=== PATIENT | male | born 1965 | race Hispanic/Latino ===

== ENCOUNTER 2019-06-25 01:26 | Inpatient (IN) | payer SELFPAY ==
[~2019-06-25] VITALS: Ht 177.8 cm; Wt 99.8 kg
[2019-06-25] MEDS ORDERED: ALBUTEROL/IPRATROPIUM 3 ML NEB NEB ONE (01:45)
[2019-06-25 02:18] LABS: BASOPHILS # (AUTO) 0.1 (0.0-0.1); BASOPHILS % 0.8 % (0.0-1.0); EOSINOPHILS # (AUTO) 0.2 (0.0-0.4); EOSINOPHILS % 3.6 % (0.0-6.0); HEMATOCRIT 38.3 % (38.2-49.6); HEMOGLOBIN 12.9 g/dL (14.0-18.0); LYMPHOCYTES # (AUTO) 2.3 (1.0-3.2); LYMPHOCYTES % 35.5 % (18.0-39.1); MEAN CORPUSCULAR HEMOGLOBIN 31.5 pg (28-32); MEAN CORPUSCULAR HGB CONC 33.7 g/dL (31-35); MEAN CORPUSCULAR VOLUME 93.4 fL (81-99); MONOCYTES # (AUTO) 0.6 (0.2-0.8); MONOCYTES % 8.8 % (4.4-11.3); NEUTROPHILS # (AUTO) 3.3 (2.1-6.9); PLATELET COUNT 236 x10e3/uL (140-360); RED CELL DISTRIBUTION WIDTH 13.3 % (11.7-14.4)
[2019-06-25 02:27] LABS: INR 0.88; PARTIAL THROMBOPLASTIN TIME 30.7 seconds (23.8-35.5); PROTHROMBIN TIME 12.4 seconds (11.9-14.5)
[2019-06-25] MEDS ORDERED: FUROSEMIDE INJ 10 MG/ML 4 ML VIAL IV ONE (02:30)
[2019-06-25 02:33] LABS: ALANINE AMINOTRANSFERASE 152 IU/L (0-55); ALBUMIN 3.9 g/dL (3.5-5.0); ALBUMIN/GLOBULIN RATIO 1.1 (0.8-2.0); ALKALINE PHOSPHATASE 83 IU/L (40-150); ANION GAP 17.7 mmol/L (8-16); BLOOD UREA NITROGEN 22 mg/dL (7-26); BUN/CREATININE RATIO 18 (6-25); CARBON DIOXIDE 18 mmol/L (22-29); CHLORIDE 102 mmol/L (98-107); CREATININE, SERUM 1.19 mg/dL (0.72-1.25); EST GLOMERULAR FILTRATION RATE > 60 ML/MIN (60-); GLUCOSE 80 mg/dL (74-118); POTASSIUM 3.7 mmol/L (3.5-5.1); SODIUM 134 mmol/L (136-145)
[2019-06-25 02:43] LABS: CREATINE KINASE MB < 1.00 ng/mL (0-4.3)
[2019-06-25] MEDS ORDERED: NITROGLYCERIN 2% OINT 1 GM PKT TOP ONE (03:15)
[2019-06-25] MEDS ORDERED: ENOXAPARIN SODIUM INJ 100 MG/ML SYR SC STA (03:17)
[2019-06-25] MEDS ORDERED: ASPIRIN 81 MG CHEW TAB PO ONE (03:30)
--- NOTE | 2019-06-25 03:55 | Diagnostic Imaging Report ---
EXAMINATION: CHEST SINGLE (PORTABLE) INDICATION: Short of breath COMPARISON: None FINDINGS: AP view TUBES and LINES: None. LUNGS: Lungs are well inflated. Increased pulmonary interstitial markings.. Central pulmonary vascular congestion. Peribronchial cuffing. PLEURA: Trace fluid in the right horizontal fissure. No pneumothorax. HEART AND MEDIASTINUM: Cardiac size is mildly enlarged. BONES AND SOFT TISSUES: No acute osseous lesion. Soft tissues are unremarkable. UPPER ABDOMEN: No free air under the diaphragm. IMPRESSION: Cardiomegaly with pulmonary interstitial edema. Signed by: Ernesto Perkins DO on 06/25/2019 3:52 AM
[2019-06-25 05:32] LABS: CREATINE KINASE 444 IU/L (30-200)
--- NOTE | 2019-06-25 06:09 | Diagnostic Imaging Report ---
EXAM: CT Chest WITH contrast (PE protocol) 06/25/2019 3:17 AM INDICATION: Short of breath COMPARISON: None TECHNIQUE: Chest was scanned utilizing a multidetector helical scanner from the lung apex through the level of the adrenal glands without administration of IV contrast. Coronal and sagittal reformations were obtained. Chest was scanned with pulmonary arterial phase and thin slices were made. IV CONTRAST: 100 mL of Isovue 370 COMPLICATIONS: None RADIATION DOSE: Total DLP: mGy*cm Estimated effective dose: (DLP x 0.014 x size factor) mSv CTDIvol has been reviewed. It is below the limits set by the Radiation Protocol Committee (RPC). Dose modulation, iterative reconstruction, and/or weight based adjustment of the mA/kV was utilized to reduce the radiation dose to as low as reasonably achievable. FINDINGS: LINES/ TUBES: None. LUNGS AND AIRWAYS: No filling defects in the pulmonary arteries. Interlobular septal thickening throughout the lungs. Scattered subtle groundglass opacities. Airways are normal. PLEURA: Trace bilateral pleural effusions. HEART AND MEDIASTINUM: The thyroid gland is normal. No mediastinal, hilar or axillary lymphadenopathy. The heart is mild enlarged. Trace fluid in the pulmonary fissures. The pulmonary artery is nondilated measures 2.7 cm in diameter. UPPER ABDOMEN: Unremarkable. BONES: The visualized bony thorax is within normal limits. SOFT TISSUES: Unremarkable. IMPRESSION: No pulmonary embolism. Mild cardiomegaly with pulmonary edema and trace left pleural effusion. Triple vessel coronary artery disease. Signed by: Ernesto Perkins DO on 06/25/2019 6:05 AM
[2019-06-25 06:26] LABS: BILIRUBIN,URINE NEGATIVE (NEGATIVE); CLARITY,URINE CLEAR (CLEAR); COLOR,URINE YELLOW (YELLOW); KETONES,URINE NEGATIVE (NEGATIVE); LEUKOCYTE ESTERASE ,URINE NEGATIVE (NEGATIVE); NITRITE,URINE NEGATIVE (NEGATIVE); PROTEIN,URINE DIPSTICK NEGATIVE (NEGATIVE); URINE UROBILINOGEN 0.2 mg/dL (0.2 - 1)
[2019-06-25] MEDS ORDERED: SODIUM CHLORIDE 0.9% 50ML 50 ML ONE (06:26)
[2019-06-25] MEDS ORDERED: IOPAMIDOL 370 MG/ML 200 ML INFUS..BTL INJ ONE (06:26)
--- NOTE | 2019-06-25 06:27 | History and Physical ---
REASON FOR ADMISSION: 1. Hypertensive urgency. 2. Pulmonary edema. 3. CHF. 4. Elevated liver function tests. HISTORY OF PRESENT ILLNESS: The patient is a noncompliant gentleman, who has a history of hypertension, who also drank 12 beers on the day of admission. We started noticing severe shortness of breath and he came to the emergency room with hypertensive urgency and significant pulmonary edema as well as elevated liver function tests. Currently he is on BiPAP with improved oxygenation as well as post diuretics and is feeling better. His CT scan of the chest showed no evidence of pulmonary embolus. PAST MEDICAL HISTORY: Hypertension. MEDICATIONS: See CLIF. ALLERGIES: SEE JAN. SOCIAL HISTORY: Positive drinker. Nonsmoker. FAMILY HISTORY: Hypertension. PHYSICAL EXAMINATION: VITAL SIGNS: Temperature is 98.6, blood pressure 166/100, pulse 74, and sats 98% on BiPAP. GENERAL: He appears to be comfortable on the BiPAP. NECK: Supple. No JVD. No lymphadenopathy. CARDIOVASCULAR: Regular rate and rhythm. LUNGS: Bilateral rales, mostly in the lower 1/3 of the lungs. ABDOMEN: Good bowel sounds. Soft and nontender. EXTREMITIES: No clubbing or cyanosis. NEUROLOGIC: Nonfocal. ASSESSMENT AND PLAN: 1. Congestive heart failure. We will do an echo to see if he has diastolic or systolic heart failure. Continue with diuretic therapy and BiPAP. 2. Hypertensive urgency. We will start him on medications and monitor the blood pressure closely. 3. Elevated liver function tests. We will also monitor since most likely secondary to alcohol use. Please see hospital chart for full details. MD KALEB Short/EVY /[id number]
[2019-06-25 06:31] LABS: AMPHETAMINES SCREEN,URINE NEGATIVE (NEGATIVE); BENZODIAZEPINES SCREEN,URINE NEGATIVE (NEGATIVE); PHENCYCLIDINE SCREEN,URINE NEGATIVE (NEGATIVE)
--- NOTE | 2019-06-25 07:06 | NUR ---
2600CC OUTPUT TOTAL AND CURRENT BP OF 160/105-DR SHAFFER AWARE. NO NEW ORDERS, REPORT GIVEN IN FULL TO MATTIE BACK
[2019-06-25] MEDS: FUROSEMIDE INJ 10 MG/ML 4 ML VIAL IV SCH ×2 (08:57→17:06)
[2019-06-25] MEDS ORDERED: LISINOPRIL 10 MG TAB PO SCH (09:00)
--- NOTE | 2019-06-25 09:00 | NUR ---
PATIENT ALERT AND ORIENTED; PATIENT REQUESTING TO BE TAKEN OFF BIPAP TO EAT BREAKFAST. PATIENT TOLERATED WELL, O2 SATS REMAIN 96-100% ON ROOM AIR; DR SHAFFER STATED OK TO LEAVE OFF BIPAP LONG O2 SATS REMAIN GREATER THAN 94%
--- NOTE | 2019-06-25 10:30 | NUR ---
PATIENT AND SPOUSE UPDATED ON PLAN OF CARE; AWAITING BED ASSIGNMENT. PATIENT REMAINS OFF BIPAP, WITH O2 SATS >97% ON ROOM AIR
[2019-06-25 11:00] LABS: CREATINE KINASE MB 2.7 ng/mL (0-5.0)
--- NOTE | 2019-06-25 14:45 | NUR ---
PATIENT RESTING QUIETLY AT THIS TIME; STILL AWAITING INPATIENT BED.
--- NOTE | 2019-06-25 16:07 | NUR ---
PATIENT'S SPOUSE STATING THAT PATIENT IS READY TO LEAVE, THAT THEY HAVE BEEN WAITING ALL DAY FOR THE RESULTS OF HIS TEST. AGAIN EXPLAINED TO PATIENT AND SPOUSE THAT PATIENT WAS ADMITTED FOR CHF, AND THAT THE PHYSICIAN NEEDED TO COME AND CLEAR THEM FIRST. PATIENT AND FAMILY WAITING TO SPEAK WITH CHARGE NURSE
--- NOTE | 2019-06-25 16:17 | NUR ---
PATIENT REQUESTING TO LEAVE AGAINST MEDICAL ADVICE. EDUCATED PATIENT AND FAMILY ON THE RISKS OF LEAVING AGAINST MEDICAL ADVICE AND BENEFITS OF STAYING TO RECEIVE CARE, INFORMED PATIENT THAT DR LOYD MUST CONSULT WITH PATIENT BEFORE AMA CAN BE SIGNED PER POLICY,VERBALIZED UNDERSTANDING.
--- NOTE | 2019-06-25 16:24 | NUR ---
NOTIFIED PATIENTN AND DR DON IBRAHIM REGARDING AMA,AWAITING CALL,VERBALIZED UNDERSTANDING. Addendum: 06/25/19 at 1628 by AMCCAULE NOTIFIED PATIENT AND FAMILY DR EVERT IBRAHIM REGARDING AMA,AWAITING CALL,VERBALIZED UNDERSTANDING.
--- NOTE | 2019-06-25 16:37 | NUR ---
DR LOYD SPOKE WITH PATIENT VIA TELEPHONE, EDUCATED PATIENT ON THE RISKS OF LEAVING AGAINST MEDICAL ADVICE,VERBALIZED UNDERSTANDING.
--- NOTE | 2019-06-25 16:42 | NUR ---
PATIENT STATES THAT HE WILL STAY TO RECEIVE CARE AND DOES NOT WISH TO LEAVE AGAINST MEDICAL ADVICE. PATIENT AWAKE AND ALERT. SITTING IN CHAIR NEXT TO BED. NO SIGNS OF ACUTE DISTRESS NOTED AT THIS TIME. PATIENT REQUESTING PAIN MEDICATION FOR HEADACHE, NOTIFIED PRIMARY NURSE NAZANIN PHELPS.
--- NOTE | 2019-06-25 16:51 | NUR ---
NOTIFIED DR DE LA CRUZ PATIENT REQUESTING PAIN MEDICATION. STATES SHE WILL SEE PATIENT AND ORDER MEDICATION.
--- NOTE | 2019-06-25 16:52 | NUR ---
VERBAL ORDER RECEIVED FROM DR DE LA CRUZ: KAVITHA 5/325MG 1 TAB ONCE FOR ALIVIA.
[2019-06-25] MEDS ORDERED: HYDROCODONE/APAP 5MG-325MG TAB PO ONE (17:30)
--- NOTE | 2019-06-25 18:14 | NUR ---
CALLED DR LOYD REGARDING PATIENT - PATIENT DOWNGRADED TO MED/TELE AT THIS TIME
[2019-06-25 18:43] LABS: CREATINE KINASE MB 2.3 ng/mL (0-5.0)
[2019-06-25 20:20] VITALS: BP 125/65
[2019-06-25 20:35] VITALS: BP 125/65
--- NOTE | 2019-06-25 20:35 | NUR ---
PATIENT RECEIVED FROM EMERGENCY DEPARTMENT PER WHEELCHAIR AT 2020. HE'S ALERT AND ORIENTED X4, CRACKLES HEARD ON THE POSTERIOR LOWER LOBES, HE DENIES DIFFICULTY BREATHING. SKIN INTEGRITY INTACT, NO EDEMA NOTED TO THE EXTREMITIES. PATIENT ORIENTED TO SURROUNDINGS, CALL LIGHT WITHIN EASY REACH AND HE'S INSTRUCTED TO CALL FOR ASSISTANCE NEEDED.
[2019-06-26] VITALS: BP 120/82
--- NOTE | 2019-06-26 00:31 | NUR ---
PATIENT IS ASLEEP, HE'S EASY TO AROUSE. HE DENIES CHEST PAIN OR SHORTNESS OF BREATH. CALL LIGHT WITHIN EASY REACH.
--- NOTE | 2019-06-26 01:05 | Consultation ---
DATE OF CONSULTATION: 06/25/2019 Cardiology Consult Note REASON FOR CONSULT: Pulmonary edema, shortness of breath, hypertensive emergency. CHIEF COMPLAINT: Shortness of breath. HISTORY OF PRESENT ILLNESS: The patient is a 54-year-old man, history of high blood pressure, not taking any medications, smoker, drinks heavily on occasion, who presented with acute onset shortness of breath, was found to be hypertensive with blood pressure of 203/130 with pulmonary edema. Denies any chest pain, syncope, prior cardiovascular disease. The patient is otherwise active in exertion as well as physically at work without any anginal symptoms. PAST MEDICAL HISTORY: Hypertension. SOCIAL HISTORY: The patient is a smoker. Drinks alcohol regularly, heavily on occasion. Denies any drug use. FAMILY HISTORY: No family history of early CAD or sudden cardiac . REVIEW OF SYSTEMS: As per HPI, otherwise negative. OUTPATIENT MEDICATIONS: None. ALLERGIES: NONE. OBJECTIVE: VITAL SIGNS: Temperature afebrile, pulse 77, respiratory rate 16, blood pressure 167/105 saturating 97% on room air. GENERAL: A middle-aged man, in no acute distress. CARDIOVASCULAR: Regular rate and rhythm. No murmurs, rubs, or gallops. LUNGS: Clear to auscultation anteriorly. ABDOMEN: Soft, nontender, nondistended. NEURO AND PSYCH: Alert and oriented to person, place, and time. Normal affect. INPATIENT MEDICATIONS: Reviewed. LABORATORY DATA: Reviewed. TELEMETRY DATA: Reviewed, shows normal sinus rhythm. IMAGING DATA: Reviewed. Chest CT shows no pulmonary embolism, pulmonary edema, and three-vessel coronary arthrosclerosis. ASSESSMENT AND PLAN: 1. Hypertensive emergency. 2. Pulmonary edema. 3. Coronary artery disease by CT scan. PLAN: The patient has already been ruled out for acute AK with serial troponins. Renal function is normal. Elevated CK, AST, and ALT. The patient has arthrosclerosis by CT scan. However, given elevated LFTs and CK, we will not start him on any statins at this time. We will start him on aspirin, titrate blood pressure medications for improved blood pressure control. Echocardiogram is pending. Thank you for this consult. We will continue to follow. MD REGLA BaezP/MODL /[id number]
[2019-06-26 04:00] VITALS: BP 142/70
--- NOTE | 2019-06-26 04:24 | NUR ---
WALKING ROUNDS MADE, PATIENT OBSERVED SOUNDLY ASLEEP WITHOUT RESPIRATORY DISTRESS. CALL LIGHT WITHIN EASY REACH.
[2019-06-26 06:07] LABS: BASOPHILS % 0.5 % (0.0-1.0); EOSINOPHILS # (AUTO) 0.2 (0.0-0.4); EOSINOPHILS % 4.2 % (0.0-6.0); HEMATOCRIT 38.4 % (38.2-49.6); HEMOGLOBIN 12.6 g/dL (14.0-18.0); LYMPHOCYTES # (AUTO) 1.6 (1.0-3.2); LYMPHOCYTES % 28.9 % (18.0-39.1); MEAN CORPUSCULAR HEMOGLOBIN 30.9 pg (28-32); MEAN CORPUSCULAR HGB CONC 32.8 g/dL (31-35); MEAN CORPUSCULAR VOLUME 94.1 fL (81-99); MONOCYTES # (AUTO) 0.7 (0.2-0.8); MONOCYTES % 12.8 % (4.4-11.3); NEUTROPHILS # (AUTO) 2.9 (2.1-6.9); NEUTROPHILS % 53.4 % (38.7-80.0); PLATELET COUNT 220 x10e3/uL (140-360); RED BLOOD COUNT 4.08 x10e6/uL (4.3-5.7); RED CELL DISTRIBUTION WIDTH 13.4 % (11.7-14.4)
[2019-06-26 06:39] LABS: ANION GAP 13.7 mmol/L (8-16); CREATININE, SERUM 1.29 mg/dL (0.72-1.25); POTASSIUM 3.7 mmol/L (3.5-5.1)
--- NOTE | 2019-06-26 07:09 | NUR ---
pt asleep resp even and unlabored this time, no distress noted at this time. call light in reach
[2019-06-26 07:58] VITALS: BP 135/85
[2019-06-26 08:50] VITALS: BP 135/85
[2019-06-26] MEDS ORDERED: LISINOPRIL 10 MG TAB PO SCH (09:00)
[2019-06-26] MEDS ORDERED: HYDROCHLOROTHIAZIDE 25 MG TAB PO SCH (09:00)
[2019-06-26] MEDS: FUROSEMIDE INJ 10 MG/ML 4 ML VIAL IV SCH ×2 (09:02→17:13)
[2019-06-26 11:54] VITALS: BP 128/84
[2019-06-26 16:03] VITALS: BP 140/76
[2019-06-26] MEDS ORDERED: LISINOPRIL40 MG PO (19:22)
[2019-06-26] MEDS ORDERED: HYDROCHLOROTHIA25 MG PO (19:23)
--- NOTE | 2019-06-26 19:48 | NUR ---
report given to oncoming nurse, pt stable.
--- NOTE | 2019-06-26 19:51 | NUR ---
Patient given discharge instructions about health condition, follow-up visits and medications. Patient verbalized understanding. IV removed from right hand with tip intact. Patient escorted to private auto accompanied by family member. Vital signs WNL. Patient in stable condition.
--- NOTE | 2019-06-26 22:01 | Progress Note ---
DATE: 06/26/2019 Cardiology Progress Note SUBJECTIVE: Feels better today. No more shortness of breath. OBJECTIVE: VITAL SIGNS: Temperature afebrile, pulse 62, respiratory rate 16, blood pressure 140/76, saturating 96% on room air. GENERAL: Middle-aged man, in no acute distress. CARDIOVASCULAR: Regular rate and rhythm. No murmurs, rubs, or gallops. LUNGS: Clear to auscultation bilaterally. ABDOMEN: Soft, nontender, and nondistended. NEURO AND PSYCH: Alert and oriented to person, place, and time. Normal affect. INPATIENT MEDICATIONS: Reviewed. LABORATORY DATA: Reviewed. TELEMETRY DATA: Reviewed, shows normal sinus rhythm. ASSESSMENT: 1. Hypertensive emergency. 2. Pulmonary edema. 3. Coronary artery disease by CT scan. PLAN: Rule out for acute MT with serial troponins. Blood pressure is now better controlled. The patient feels much better. Okay to be discharged from cardiovascular standpoint. He will follow up as an outpatient in clinic once he is added to his 's insurance. Continue current outpatient medications. Prescriptions have been given. The patient is okay to be discharged from cardiovascular standpoint. MD SUZE Baez/EVY /[id number]
--- NOTE | 2019-06-27 06:37 | Discharge Summary ---
DISCHARGE DIAGNOSES: 1. Hypertensive urgency. 2. Pulmonary edema. HISTORY OF PRESENT ILLNESS: The patient is a gentleman, who presented to the emergency room with hypertensive urgency, noncompliance, history of alcohol use where he was brought in, placed on IV antihypertensive agents. He almost left AMA, but I was able to talk to him and he decided to stay. The patient had significant improvement in his blood pressure once he was just placed back on his medications that at the time of discharge, his blood pressure was 140/76 and had remained below that, but 24 hours prior to that, he was 96% on room air. He is very comfortable. He had no further pulmonary edema on x-ray. He does have some elevated liver function tests on blood test, most likely secondary to his alcohol drinking, which I told him he needed to quit drinking. He needs to make sure he follows up with his primary care physician as an outpatient to have that reassessed which patient states thought to be put on his 's insurance, so he will start to get and further worked up. He was discharged home with his medications of lisinopril 40 mg a day and hydrochlorothiazide 25 mg a day. He is also to follow up with Dr. Kirk of Cardiology. Please see hospital chart for full details. MD KALEB Short/EVY /[id number]
== END 2019-06-26 19:51 | disposition home or self-care (01) | DRG 304 ==
LOC: ER 01:26 → ERHOLD 03:31 → MED/SURG2 20:20
PROVIDERS: ADMIT Internal Medicine; ATTEND Internal Medicine
DX: I16.0 Hypertensive urgency (principal); I50.33 Acute on chronic diastolic (congestive) heart failure; J81.1 Chronic pulmonary edema; I11.0 Hypertensive heart disease with heart failure; F10.20 Alcohol dependence, uncomplicated; F17.200 Nicotine dependence, unspecified, uncomplicated; I25.10 Atherosclerotic heart disease of native coronary artery without angina pectoris; Z91.19 Patient's noncompliance with other medical treatment and regimen
CPT/HCPCS: 36415; 71045; 71260; 80048; 80053; 80307; 81001; 82550; 82553; 83880; 84484; 85025; 85379; 85610; 85730; 93005; 93306; 94640; 94660; 99284; J1650; J1940; Q9967